=== PATIENT | female | born 1940 | race Caucasian/White ===

== ENCOUNTER → 2016-06-13 | Outpatient (CLI) | payer OTHER ==
--- NOTE | 2016-06-13 17:22 | DX ---
PA and lateral chest. June 13, 2016. Clinical History: Dyspnea on exertion Comparison Study: June 10, 2014. Findings: There has been slight increase in pulmonary vascular prominence when compared to prior stud y. This may be secondary to circulating hypervolemia or early cardiac dysfunction. Heart size is normal. No infiltrate or pleural effusion.. Fiducial markers overlie the right breast. Impression: Slight interval increase in pulmonary vascular prominence from previous exam, potentially related to hypervolemia or early cardiac dysfunction. Otherwise negative.. Telephone results left on answering system for Kathryn Hernandez NP
== END ==
LOC: BMCIMAGING 16:03
PROVIDERS: ATTEND Nurse Practitioner Adult Health
DX: R06.02 Shortness of breath (principal); R91.8 Other nonspecific abnormal finding of lung field

== ENCOUNTER → 2017-04-30 | Outpatient (CLI) | payer OTHER | LOC: BMCIMAGING 15:04 | PROVIDERS: ATTEND Family Medicine | DX: M17.12 Unilateral primary osteoarthritis, left knee (principal); M25.462 Effusion, left knee ==

== ENCOUNTER → 2018-05-19 | Outpatient (CLI) | payer OTHER | LOC: FIMAGING 14:11 | PROVIDERS: ATTEND Internal Medicine | DX: Z13.820 Encounter for screening for osteoporosis (principal); M85.89 Other specified disorders of bone density and structure, multiple sites; Z78.0 Asymptomatic menopausal state; Z85.3 Personal history of malignant neoplasm of breast ==

== ENCOUNTER → 2018-05-31 | Outpatient (CLI) | payer OTHER | LOC: FIMAGING 08:32 | DX: M50.322 Other cervical disc degeneration at C5-C6 level (principal); M48.02 Spinal stenosis, cervical region; M53.82 Other specified dorsopathies, cervical region; M40.204 Unspecified kyphosis, thoracic region; M51.34 Other intervertebral disc degeneration, thoracic region ==